=== PATIENT | female | born 2000 | race Caucasian/White ===

== ENCOUNTER 2019-06-09 11:40 | Emergency (ER) | payer SELFPAY ==
[2019-06-09] MEDS ORDERED: CHERRY SYRUP 10 ML UDC PO ONE (13:35)
[2019-06-09] MEDS ORDERED: DEXAMETHASONE 10 MG/ML VIAL PO STA (13:35)
--- NOTE | 2019-06-09 13:38 | ED Physician Documentation ---
PD HPI URI - Stated complaint Stated Complaint: COUGH/FEVER - Chief complaint Chief Complaint: General - History obtained from History obtained from: Patient - History of Present Illness Timing - onset: How many days ago (3) Timing duration: Days (3) Timing details: Gradual onset, Still present Associated symptoms: Fever, Nasal congestion, Rhinorrhea, Productive cough Contributing factors: Travel Improves by: Rest, Medication Worsened by: Activity Similar symptoms before: No diagnosis Recently seen: Not recently seen - Additional information Additional information: 18-year-old female who is visiting here from [place] has developed a cough and congestion with fever she denies any sore throat she does have some production of yellow-greenish phlegm and she denies any wheezing. She does state that several weeks ago she had a similar infection that spontaneously resolved and symptoms have now returned. She does have some pressure in her sinuses when she angelo she does not have pain in her face. Review of Systems Constitutional: reports: Fever, Chills, Fatigue Eyes: denies: Decreased vision Ears: denies: Ear pain Nose: reports: Rhinorrhea / runny nose, Congestion, Sinus pressure / pain Throat: denies: Sore throat Cardiac: denies: Chest pain / pressure, Palpitations Respiratory: reports: Cough. denies: Dyspnea GI: denies: Vomiting PD PAST MEDICAL HISTORY - Present Medications Home Medications: Ambulatory Orders Medication Instructions Recorded Confirmed Oseltamivir [Tamiflu] 75 mg PO BID #10 capsule 06/09/19 - Allergies Allergies/Adverse Reactions: Allergies Allergy/AdvReac Type Severity Reaction Status Date / Time No Known Drug Allergies Allergy Verified 06/09/19 11:53 PD ED PE NORMAL - Vitals Vital signs reviewed: Yes (hypertensive) - General General: Alert and oriented X 3, No acute distress, Well developed/nourished - HEENT HEENT: Atraumatic, PERRL, EOMI, Other (both TM's have minimal inflamation centrally The pharynx is with 1+ cyptic tonsils with exudate worse on the left. There is nasal quality to the voice increased pressure to the maxillary sinuses with stooping and no point tenderness to the sinuses on percussion) - Neck Neck: Supple, no meningeal sign, No bony TTP - Cardiac Cardiac: RRR, No murmur - Respiratory Respiratory: No respiratory distress, Clear bilaterally - Abdomen Abdomen: Soft, Non tender - Back Back: No CVA TTP - Derm Derm: Normal color, Warm and dry, No rash - Extremities Extremities: No deformity, No edema - Neuro Neuro: Alert and oriented X 3, geotechnical engineer 2-12 intact, No motor deficit, No sensory deficit, Normal speech Eye Opening: Spontaneous Motor: Obeys Commands Verbal: Oriented GCS Score: 15 - Psych Psych: Normal mood, Normal affect Results - Vitals Vitals: Vital Signs - 24 hr 06/09/19 11:53 Temperature 36.8 C Heart Rate 97 Respiratory 14 Rate Blood Pressure 136/86 H O2 Saturation 97 Oxygen O2 Source Room air - Labs Labs: Laboratory Tests 06/09/19 13:35 Influenza A (Rapid) POSITIVE H Influenza B (Rapid) Negative PD MEDICAL DECISION MAKING - ED course Complexity details: reviewed results, re-evaluated patient, considered different ial, d/w patient ED course: 18-year-old female with minimal inflammation in the upper airways has a positive influenza A. She is given dexamethasone 10 mg orally and we will place her on some Tamiflu. Departure - Departure Disposition: 01 Home, Self Care Clinical Impression: Influenza A Condition: Stable Instructions: ED Flu Follow-Up: Your, doctor [Other] Prescriptions: Oseltamivir [Tamiflu] 75 mg PO BID #10 capsule
[2019-06-09 14:03] VITALS: BP 130/80
== END 2019-06-09 14:02 | disposition home or self-care (01) ==
LOC: ED 11:40
DX: J10.1 Influenza due to other identified influenza virus with other respiratory manifestations (principal)
CPT/HCPCS: 87275; 87276; 99283; 99284; A9270